=== PATIENT | male | born 1995 | race Caucasian/White ===

== ENCOUNTER → 2024-04-10 08:52 | Outpatient (CLI) | payer OTHER, SELFPAY ==
--- NOTE | 2024-04-10 08:54 | DI.RAD.S_ITS ---
PROCEDURE: XR FOOT RT MIN 3V INDICATIONS: medial heel pain x 1 D w/ weight bear TECHNIQUE: 3 views of the foot were acquired. COMPARISON: None. FINDINGS: Bones: No fractures or dislocations. Normal alignment on nonweightbearing view. Mild 1st MTP and IP joint space narrowing. No suspicious bony lesions. Soft tissues: No tibiotalar joint effusion. Achilles tendon appears normal. IMPRESSION: 1. No acute bony abnormality. If clinical symptoms persist, consider repeat radiograph in 10-14 days versus cross-sectional imaging. 2. Normal alignment on nonweightbearing view. Dictated by: Megan Tinoco M.D. on 04/10/2024 at 9:12 Approved by: Megan Tinoco M.D. on 04/10/2024 at 9:13
== END ==
PROVIDERS: PCP Internal Medicine; Referring Provider Student in an Organized Health Care Education/Training Program; Visit Provider Student in an Organized Health Care Education/Training Program
DX: M79.671 Pain in right foot (principal)
CPT/HCPCS: 73630